=== PATIENT | female | born 1945 | race Caucasian/White ===

== ENCOUNTER → 2017-09-27 | Outpatient (CLI) | payer MEDICARE, OTHER | END | disposition home or self-care (01) | LOC: KCIC MRI 12:58 | DX: M48.07 Spinal stenosis, lumbosacral region (principal); M12.88 Other specific arthropathies, not elsewhere classified, other specified site; G89.29 Other chronic pain | CPT/HCPCS: 72148 ==

== ENCOUNTER → 2018-08-20 | Outpatient (CLI) | payer MEDICARE, OTHER ==
[~2018-08-20] MED LIST: REGADENOSON 0.4 MG/5 ML DISP.SYRIN. IV ONE
--- NOTE | 2018-08-20 11:38 | RAD ---
MR#: [id number] Date of Study: 08/20/2018 Ordering Physician: SHELBY GROVE, Referring Physician: SEAN HEATON Tech: LEE Thomas APPROVED REPORT Test Type: Pharmacological Stress Nurse/Tech: Yolanda Charles RN Test Indications: Preop clearance, intermittent left chest pain Cardiac History: Hypertension Medications: See Electronic Medical Record Medical History: See Electronic Medical Record Resting ECG: SR Resting Heart Rate: 67 bpm Resting Blood Pressure: 169/81mmHg Pretest Chest Pain: No chest pain Nurse/Tech Notes S1,S2 and lungs are clear to auscultation. Consent: The procedure was explained to the patient in lay terms. Informed consent was witnessed. Glen eout was entered into BO.LT. History and Stress Test performed by MINERVA Patrick, CASI (R) (N) Pharm. Details Pharmacologic stress testing was performed using 0.4mg per 5ml of regadenoson given intravenously ove r 7-10 seconds. Stress Symptoms No chest pain or symptoms. POST EXERCISE Reason for Termination: Infusion complete Target HR: No Max HR: 91 bpm Max Blood Pressure: 162/68mmHg Blood Pressure response to exercise: Normal blood pressure response during stress. Heart Rate response to exercise: WNL Chest Pain: No. Arrhythmia: No. ST Change: No. INTERPRETATION Stress EKG Conclusion: Baseline EKG showed sinus rhythm. No ischemic changes at peak stress. No arr hythmias. Imaging Protocol IMAGE PROTOCOL: Rest Tc-99m/stress Tc-99m 1 day Rest: Stress: Viability: Radiopharm.Tc99m FfwcvduatOd88j Sestamibi Dose10.4mCi 33mCi Duration 15min. 10min. Img Date 08/20/2018 08/20/2018 Inj-Img Vxjd18txl. 60min. Rest Admin Site:IV - Right AntecubitalAdministrator:MINERVA Patrick, LORRIT (R)(N) Stress Admin Site: IV - Right AntecubitalAdministrator: RT Jennifer (R)(N) STRESS DATA End Diast. Vol.75.0mlAv. Heart Rate82.0bpm End Syst. Vol.18.0mlCO Index BSA0.0L/min Myocardial Aqbl857.0gEject. Qpzzsdbt34.0% Stress Rates Pk. Fill Rate4.00EDV/secLVtime Pk. Fill 187.23msec Pk. Empty Rate4.73ESV/secLVtime Pk. Bxxcx682.21msec 1/3 Pk. Fill0.88EDV/sec Stress Scores Regional WT1.00Summed WT1.00 Regional WM0.00Summed WM1.00 Study quality was good. Left Ventricular size was Normal at Rest and Stress. Lung uptake was . Left Ventricular ejection fraction is 76%. The rest and stress images show normal perfusion, normal contraction and thickening. LV Perf. Quant 17 Seg. SSS1.00 17 Seg. SRS2.00 17 Seg. SDS0.00 Stress Defect Extent (% LAD)0.00Rest Defect Extent (% LAD)0.00Rev. Defect Extent (% LAD)0.00 Stress Defect Extent (% LCX) 0.00Rest Defect Extent (% LCX)20.00Rev. Defect Extent (% LCX)0.00 Stress Defect Extent (% RCA)0.00Rest Defect Extent (% RCA)0.00Rev. Defect Extent (% RCA)0.00 Stress Defect Extent (% MATHEW)0.00Rest Defect Extent (% MATHEW)3.50Rev. Defect Extent (% MATHEW)0.00 Conclusion 1. Regadenoson cardioisotope stress test did not show any evidence of ischemia or infarct. 2. Normal left ventricular systolic function with ejection fraction calculated at 76%. 3. Low risk for cardiac events. Signed by : Shelby [place], Electronically Approved : 08/20/2018 11:37:43
== END | disposition home or self-care (01) ==
LOC: NM 08:30
PROVIDERS: ATTEND Internal Medicine Cardiovascular Disease
DX: Z01.810 Encounter for preprocedural cardiovascular examination (principal); I10 Essential (primary) hypertension
CPT/HCPCS: 78452; 93017; A9500; J2785

== ENCOUNTER → 2020-06-24 | Outpatient (CLI) | payer MEDICARE ==
--- NOTE | 2020-06-24 15:34 | CARD ---
MR#: [id number] Date of Study: 06/24/2020 Ordering Physician: JENNA RODGERS, Referring Physician: JENNA RODGERS, Tech: Kristi Alexander RDCS APPROVED REPORT EXAM: Two-dimensional and M-mode echocardiogram with Doppler and color Doppler. Other Information Quality : Good INDICATION Murmur 2D DIMENSIONS RVDd2.4 (2.9-3.5cm)Left Atrium(2D)2.8 (1.6-4.0cm) IVSd1.2 (0.7-1.1cm)Aortic Root(2D)2.5 (2.0-3.7cm) LVDd3.8 (3.9-5.9cm)LVOT Diameter2.0 (1.8-2.4cm) PWd0.9 (0.7-1.1cm)LVDs2.5 (2.5-4.0cm) FS (%) 30.0 %SV40.7 ml LVEF(%)60.0 (>50%) Aortic Valve AoV Peak Marv.150.9cm/sAoV VTI26.9cm AO Peak GR.9.1mmHgLVOT Peak Marv.113.2cm/s LVOT VTI 22.12cmAO Mean GR.5mmHg NARGIS (VMAX)2.93gu7PJR (VTI)2.49cm2 Mitral Valve MV E Uhgfwrzm17.4cm/sMV DECEL MIML611dv MV A Sumbvlta182.9cm/sMV MUE46st E/A Ratio0.6MVA (PHT)2.64cm2 TDI E/Lateral E'11.8E/Medial E'11.6 Tricuspid Valve TR P. Fbxoxwzt677dl/sRAP EFPMQHUM5ahWg TR Peak Gr.81vyPqBAYC36okAu Pulmonary Vein S1 Dzhfxrbg39.3cm/sD2 Bxpnldsz06.9cm/s LEFT VENTRICLE The left ventricle is normal size. The left ventricular systolic function is normal. The Ejection Fra ction is 55-60%. There is normal LV segmental wall motion. Transmitral Doppler flow pattern is Grade I-abnormal relaxation pattern. RIGHT VENTRICLE The right ventricle is normal size. The right ventricular systolic function is normal. ATRIA The left atrium size is normal. The right atrium size is normal. The interatrial septum is intact wit h no evidence for an atrial septal defect or patent foramen ovale as noted on 2-D or Doppler imaging. AORTIC VALVE The aortic valve is mildly thickened but opens well. Doppler and Color Flow revealed no significant a ortic regurgitation. There is no significant aortic valvular stenosis. MITRAL VALVE The mitral valve is calcified but opens well. Mitral annular calcification is mild. There is no evide nce of mitral valve prolapse. There is no mitral valve stenosis. Doppler and Color-flow revealed trac e mitral regurgitation. TRICUSPID VALVE The tricuspid valve is normal in structure and function. Doppler and Color Flow revealed trace to mil d tricuspid regurgitation. The PA pressure was estimated at 31 mmHg. There is no tricuspid valve sten osis. PULMONIC VALVE The pulmonic valve is not well visualized. Doppler and Color Flow revealed physiological pulmonic aron vular regurgitation. There is no pulmonic valvular stenosis. GREAT VESSELS The aortic root is normal in size. The ascending aorta is normal in size. The IVC is normal in size a nd collapses >50% with inspiration. PERICARDIAL EFFUSION There is no evidence of significant pericardial effusion. Critical Notification Critical Value: No <Conclusion> The left ventricular systolic function is normal. The Ejection Fraction is 55-60%. There is normal LV segmental wall motion. Transmitral Doppler flow pattern is Grade I-abnormal relaxation pattern. Trace mitral regurgitation. Trace to mild tricuspid regurgitation. The PA pressure was estimated at 31 mmHg. There is no evidence of significant pericardial effusion. Signed by : Clifford Huang, Electronically Approved : 06/24/2020 15:34:00
== END ==
LOC: ECHO 13:00
PROVIDERS: ATTEND Internal Medicine
DX: I08.8 Other rheumatic multiple valve diseases (principal)
CPT/HCPCS: 93306